=== PATIENT | female | born 2005 | race Caucasian/White ===

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

== ENCOUNTER 2025-02-21 10:56 | Outpatient (RCR) | payer MEDICAID, SELFPAY | END 2025-02-23 23:59 | disposition home or self-care (01) | LOC: TPT 10:56 | PROVIDERS: PCP Nurse Practitioner Family; Visit Provider Nurse Practitioner Family | DX: M54.2 Cervicalgia (principal) | CPT/HCPCS: 97110; 97140 ==